=== PATIENT | female | born 1990 | race Caucasian/White ===

== ENCOUNTER → 2016-08-18 | Outpatient (REF) ==
[~2016-08-18] MED LIST: DEPO-PROVER400 MG/ML IM; NO HOME MEDICATIONS; NORCO 325 MG-51 TAB PO; PRENATAL1 TA1 PO; PRILOSEC 20MG20 MG PO; VALTREX 50500 MG/TAB PO
[2016-08-18 10:38] LABS: LACTATE DEHYDROGENASE 368 U/L (313-618)
[2016-08-18 10:54] LABS: C-REACTIVE PROTEIN < 0.5 mg/dL (0.0-0.9)
== END ==
LOC: ZLAB.WCH 10:14
PROVIDERS: Internal Medicine
DX: Z01.89 Encounter for other specified special examinations (principal)

== ENCOUNTER → 2016-11-09 | Outpatient (REF) | LOC: ZLAB.WCH 17:55 | DX: Z01.89 Encounter for other specified special examinations (principal) ==

== ENCOUNTER 2018-10-26 06:19 | Inpatient (IN) | payer OTHER ==
[2018-10-26] VITALS (34 sets, daily range): BP systolic 102–142; BP diastolic 7–94; PULSE 80–109; TEMP 97.8–98.9
[~2018-10-26] VITALS: Ht 167.6 cm; Wt 100.0 kg
--- NOTE | 2018-10-26 14:40 | NUR ---
Pt arrives on unit ambulatory with spouse for induction of labor. G3L2 at 38.5 weeks gestation for polyhydramnios. Changed into clean gown. EFM and toco applied. VSS. IV started in LH. Labs drawn. LR infusing. Admission assessment completed. Consents signed. Pt updated on POC. Safety reviewed. No questions or concerns at this time. Call light within reach. Bed locked in low position.
[2018-10-26 15:15] LABS: BASO % 0.2 % (0.0-2.0); EOS % 0.6 % (0-4.0); GRAN # 4.6 (1.4-6.5); GRAN % 71.1 % (42.2-75.2); LYMPH # 1.3 (1.2-3.4); LYMPH % 20.6 % (20.0-51.0); MEAN CELL VOLUME 92 fl (80.0-100.0); MEAN CORPUSCULAR HEMOGLOBIN 31 pg (27.0-31.0); MEAN CORPUSCULAR HGB CONC 34 g/dl (33.0-37.0); MEAN PLATELET VOLUME 11.4 fl (7.4-10.4); MONO # 0.5 (0.1-0.6); MONO % 7.2 % (1.7-9.3); PLATELET COUNT 182 K/mm3 (130-400); RED BLOOD COUNT 3.52 M/mm3 (4.10-5.30); REDCELL DISTRIBUTION WIDTH-CV 12.7 % (11.5-14.5)
[2018-10-26 15:16] LABS: HEMATOCRIT 32.4 % (37.0-47.0)
--- NOTE | 2018-10-26 21:20 | NUR ---
2119- JASPAL Núñez at the bedside for epidural placement per pt's request. Timeout completed. Pt sitting up on the edge of the bed. SPO2 monitor placed. EFM intermittently tracing maternal HR as coorelates with SPO2 monitor. 2125- Single shot given per [employer] ENGINEER. See anesthesia record for details. 2130- Repositioned pt back in bed with left wedge. EFM and toco monitors adjusted.
--- NOTE | 2018-10-26 22:45 | NUR ---
Spoke with Dr. Briggs for an update on pt's status with SVE, ctx pattern and epidural placement. Also reviewed FHR decel with interventions used during decel and return to baseline. Continue pitocin infusion as ordered. No new orders at this time.
--- NOTE | 2018-10-26 22:57 | NUR ---
225- FHR off monitor. Audible decel to the 90's for 4 mins. Repositioned pt in bed, IV bolus started and pitocin infusion stopped. 2200- FHR with slow return to baseline 120's. 2208- Maternal BP 100/53 HR 75. 2211- Maternal BP 95/52 HR 73. Ephedrine given. See EMAR for details. 2219- Pitocin infusion restarted per order and protocol.
--- NOTE | 2018-10-26 23:52 | NUR ---
2352- SVE by this RN 2. 2354- Spoke with Dr. Briggs for an update on SVE and FHR tracing reviewed. MD on her way in for delivery. 0000- MD at the bedside. Quick removed. Pt set up for delivery. 0004- Pushing started. 0007- of viable male . placed on mom's abdomen. Cords clamped and cut. Care of the given to nursery RN at the bedside. 0012- of placenta. Pitocin started at 333ml/hr per order and protocol. Fundus firm with moderate lochia per Dr. Briggs.
[2018-10-27] VITALS (12 sets, daily range): BP systolic 111–134; BP diastolic 55–79; PULSE 88–125; TEMP 97.5–98.4
--- NOTE | 2018-10-27 02:35 | NUR ---
Pt up to the bathroom with standby assist and without complications. Pt was not able to void. Paula-care done. Pt ambulated to room 212. Oriented to room, bed and call light within reach. Plan of care reviewed.
--- NOTE | 2018-10-27 09:40 | NUR ---
Initial visit; Parents thanked Wedding Florist for offering congratulations and God's blessings for the of their son. Wedding Florist thanked them for choosing [facility].
[2018-10-28 04:24] VITALS: BP 100/53; PULSE 89; TEMP 98.1
[2018-10-28 08:42] VITALS: BP 93/54; PULSE 74; TEMP 97.4
[2018-10-28] MEDS ORDERED: IBU800 M1 PO (09:22)
== END 2018-10-28 13:00 | disposition home or self-care (01) | DRG 807 ==
LOC: LDR 06:19 → OB 14:23 → LDR 14:23 → OB 10-27 02:58
PROVIDERS: ADMIT Student in an Organized Health Care Education/Training Program
PROC: 10907ZC Drainage of Amniotic Fluid, Therapeutic from Products of Conception, Via Natural or Artificial Opening (ICD-10-PCS; 2018-10-26)
PROC: 3E033VJ Introduction of Other Hormone into Peripheral Vein, Percutaneous Approach (ICD-10-PCS; 2018-10-26)
PROC: 10E0XZZ Delivery of Products of Conception, External Approach (ICD-10-PCS; principal; 2018-10-27)
PROC: 0KQM0ZZ Repair Perineum Muscle, Open Approach (ICD-10-PCS; 2018-10-27)
DX: O40.3XX0 Polyhydramnios, third trimester, not applicable or unspecified (principal); Z37.0 Single live birth; Z3A.38 38 weeks gestation of pregnancy; O99.344 Other mental disorders complicating childbirth; F32.9 Major depressive disorder, single episode, unspecified; O99.214 Obesity complicating childbirth; O99.284 Endocrine, nutritional and metabolic diseases complicating childbirth; E03.9 Hypothyroidism, unspecified; O99.62 Diseases of the digestive system complicating childbirth; K21.9 Gastro-esophageal reflux disease without esophagitis; O70.1 Second degree perineal laceration during delivery
CPT/HCPCS: J2590; J2795; J7120

== ENCOUNTER → 2021-12-17 | Outpatient (REF) ==
[~2021-12-17] MED LIST changes: +IBU800 M1 PO
== END ==
LOC: COL.CARD 14:12
DX: R00.2 Palpitations (principal)

== ENCOUNTER 2023-05-05 09:27 | Day surgery (SDC) | payer OTHER ==
[~2023-05-05] VITALS: Ht 167.6 cm; Wt 85.5 kg
[2023-05-05 10:01] VITALS: BP 116/84; PULSE 65; TEMP 98
[2023-05-05] MEDS ORDERED: TYLENOL 500MG500 MG PO (10:06)
[2023-05-05] MEDS ORDERED: MOTRIN 200200 MG/TAB PO (10:07)
--- NOTE | 2023-05-05 10:25 | NUR ---
The patient ambulated back to [place] [facility] independently using a steady gait and appeared to tolerate the activity well. Vital signs obtained. Consent signed. 20G IV started in right anecubital on second attempt, LR infusing without difficulty. Assessment completed. Home medications reconcilled. Call light is within reach. Warm blankets provided. at bedside. Denies any further needs.
[2023-05-05 11:20] VITALS: BP 111/77; PULSE 70; TEMP 97.2
[2023-05-05 11:30] VITALS: BP 113/75; PULSE 68
[2023-05-05 11:45] VITALS: BP 121/79; PULSE 63
--- NOTE | 2023-05-05 11:56 | NUR ---
1120- PATIENT RETUR[place] [facility] [place] [facility] [facility]. PT AWAKE AND ALERT. RESPIRATIONS UNLABORED. AMBULATED TO RECLINER CHAIR WITH 2:1 SBA. PT DENIES NAUSEA OR ABDOMINAL PAIN. HOOKED UP TO MONITOR AND VS OBTAINED. CALL LIGHT AT SIDE AND PRESENT. 1123- DR. WOOD IN ROOM SPEAKING WITH PATIENT. 1135- PATIENT TOLERATING GRAPE JUICE AND MUFFIN WITHOUT NAUSEA. 1142- D/C INSTRUCTIONS REVIEWED WITH PATIENT. PT VERBALIZED UNDERSTANDING AND A COPY OF INSTRUCTIONS PROVIDED IN D/C FOLDER. 1150- PATIENT DRESSES SELF. 1156- PATIENT DISCHARGED FROM UNIT VIA W/C TO A PERSONAL VEHICLE. PT LEFT HOSPITAL IN STABLE CONDITION.
== END 2023-05-05 11:56 | disposition home or self-care (01) ==
LOC: SDCO 09:27
DX: K59.00 Constipation, unspecified (principal); K92.1 Melena; K62.89 Other specified diseases of anus and rectum; R10.9 Unspecified abdominal pain; K64.0 First degree hemorrhoids
CPT/HCPCS: J2704; J7120